=== PATIENT | male | born 1955 | race Caucasian/White ===

== ENCOUNTER 2016-07-01 14:25 | Emergency (ER) | payer OTHER ==
[2016-07-01] MEDS ORDERED: IPRATROPIUM/ALBUTEROL 0.5-2.5 MG/3 ML AMPUL NEB ONE (14:46)
--- NOTE | 2016-07-01 14:48 | ER Document Report ---
ED Cardiac - General Stated Complaint: CHEST PAIN, SHORTNESS OF BREATH Time seen by provider: 14:42 Mode of Arrival: Ambulatory Information source: Patient Notes: 60 yo ex smoker, hypertensive, non hyperlipedemic, non dm, family hx CAD , male sent from dr parrish's office due to cough , chest pain, wheezing at the office. Started getting sick on tuesday with fever, cough, sneezing, nausea, thought he was getting better, but got worse driving here with light sensitivity,anger/ agitation, worse coughing, worse with deep breath. Worse in afternoons with fever. Whole anterior chest is hurting intermittent at first and constant now for 4 days, worse with cough. Hx cirrhosis, PAT. elevated ammonia levels., pneumonia 2003, feels like he has pneumonia again. TRAVEL OUTSIDE OF THE [place] IN LAST 30 DAYS: No - Related Data Allergies/Adverse Reactions: codeine [Codeine] Allergy (Verified 11/23/11 15:43) morphine [Morphine] Allergy (Verified 11/23/11 15:42) Past Medical History - General Information source: Patient - Social History Smoking Status: Former Smoker Frequency of alcohol use: ex-alcoholic Drug Abuse: None Lives with: Spouse/Significant other Family History: None - Past Medical History Cardiac Medical History: Reports: Hx Hypertension Pulmonary Medical History: Reports: Hx Pneumonia GI Medical History: Reports: Hx Cirrhosis Past Surgical History: Reports: Hx Orthopedic Surgery - R arm. Denies: Hx Pacemaker - Immunizations Hx Diphtheria, Pertussis, Tetanus Vaccination: Yes Review of Systems - Review of Systems Constitutional: No symptoms reported EENT: No symptoms reported Cardiovascular: See HPI Respiratory: See HPI Gastrointestinal: No symptoms reported Genitourinary: No symptoms reported Male Genitourinary: No symptoms reported Musculoskeletal: No symptoms reported Skin: No symptoms reported Hematologic/Lymphatic: No symptoms reported Neurological/Psychological: No symptoms reported Physical Exam - Vital signs Vitals: Temp Pulse Resp BP Pulse Ox 97.9 F 69 20 145/77 H 96 07/01/16 14:29 07/01/16 14:29 07/01/16 14:29 07/01/16 14:29 07/01/16 14:29 Interpretation: Normal - General General appearance: Appears well, Alert In distress: None - HEENT Head: Normocephalic, Atraumatic Eyes: Normal Conjunctiva: No: Icteric Pupils: PERRL External canal: Normal Nasal: Normal Mucous membranes: Normal Pharynx: Erythema Neck: No: Lymphadenopathy, Thyromegally - Respiratory Respiratory status: No respiratory distress Chest status: Nontender Breath sounds: Wheezing - Inspiratory next 20 bilateral and course Chest palpation: Normal - Cardiovascular Rhythm: Regular Heart sounds: Normal auscultation Murmur: No - Abdominal Inspection: Normal Distension: No distension Bowel sounds: Normal Tenderness: Nontender. No: Tender Organomegaly: No organomegaly - Back Back: Normal, Nontender. No: CVA tenderness - Extremities General upper extremity: Normal inspection, Nontender, Normal color, Normal ROM , Normal temperature General lower extremity: Normal inspection, Nontender, Normal color, Normal ROM , Normal temperature, Normal weight bearing. No: Etienne's sign - Neurological Neuro grossly intact: Yes Cognition: Normal Orientation: AAOx4 [place]nel Coma Scale Eye Opening: Spontaneous [place] Coma Scale Verbal: Oriented [place] Coma Scale Motor: Obeys Commands Arnel Coma Scale Total: 15 Speech: Normal Motor strength normal: LUE, RUE, LLE, RLE Sensory: Normal - Psychological Associated symptoms: Normal affect, Normal mood - Skin Skin Temperature: Warm Skin Moisture: Dry Skin Color: Normal Skin irregularity: negative: Rash Course - Re-evaluation Re-evalutation: 07/01/16 16:28 Still has some expiratory wheezing bilateral but not as loud as when he first came in 07/01/16 19:09 less coarse wheeze after the nebulizers and prednisone. chest xray is negative. cardiac labs negative. white count normal. ast mildly elevated. pt feels better. 07/01/16 19:[address] Parrish who states that the she ruth a CBC and then developed pain on the office she did not draw pneumonia level I told her that the patient was concerned and so I added that but that he was given a be discharged and she stated she would follow-up with him. I consulted with , based on the fact that his chest wall is tender and has been since he started coughing on Tuesday, wheezing inspiratory next 12 that inhaled bronchodilators has helped , normal sinus rhythm, no tachypnea or tachycardia I doubt that there is pulmonary embolism and the cardiac enzymes are negative do not believe this is ischemia. 07/01/16 21:44 ammonia level negative. pt was discharged. - Vital Signs Vital signs: Temp Pulse Resp BP Pulse Ox 97.9 F 89 15 159/69 H 93 07/01/16 14:29 07/01/16 18:28 07/01/16 19:42 07/01/16 19:42 07/01/16 19:42 - Laboratory Result Diagrams: 07/01/16 15:30 07/01/16 15:30 Laboratory results interpreted by me: 07/01/16 07/01/16 07/01/16 15:30 15:30 19:37 RDW 15.0 H Plt Count 70 L Total Bilirubin 1.5 H Direct Bilirubin 0.5 H AST 73 H Ammonia < 8.7 L Creatine Kinase 173 H - EKG Interpretation by Me EKG shows normal: Sinus rhythm Rate: Normal Rhythm: NSR Discharge - Discharge Clinical Impression: bronchitis, wheezing, chest wall tenderness, History of cirrhosis of liver Disposition: HOME, SELF-CARE Additional Instructions: Follow-up with Dr. Parrish for your ammonia level and lab work that she ruth today Return to the emergency room if coughing or pain or any concerns Use the inhaled bronchodilator every 3 hours. Nebulizer machine may be used 4 times a day with the inhaled bronchodilator Prednisone one week as a taper Drink plenty of fluids Rest Please complete the patient satisfaction survey if you get one, and return it.. If you do not receive a survey, then you can go to the [facility] website, [email or web address] and place your comments about your very good care. Thank you very much. It was a pleasure being your medical provider today. Prescriptions: Albuterol Sulfate [Ventolin 0.083% Neb 2.5 mg/3 mL Ampul] 2.5 mg NEB Q3HP PRN # 25 vial PRN Reason: Albuterol Sulfate [Proair HFA Inhalation Aerosol 8.5 gm MDI] 2 puff IH Q3HP PRN #1 [id number].[id number] PRN Reason: Nebulizer [Nebulizer Machine] 1 each MC ASDIR PRN #1 kit PRN Reason: Prednisone [Deltasone 10 mg Tablet] 10 mg PO ASDIR PRN #21 tablet PRN Reason: Referrals: PIERRE HAMMONDS MD [Primary Care Provider] - Follow up as needed
[2016-07-01] MEDS ORDERED: ASPIRIN 81 MG TABLET, CHEWABLE PO ONE (14:52)
[2016-07-01] MEDS ORDERED: ALBUTEROL SULFATE 0.083% NEB 2.5 MG/3 ML AMPUL NEB ONE (14:52)
[2016-07-01] MEDS ORDERED: PREDNISONE 20 MG TABLET PO ONE (14:52)
[2016-07-01 15:50] LABS: ABSOLUTE EOSINOPHILS # (AUTO) 0.1 10^3/uL (0.0-0.6); ABSOLUTE LYMPHOCYTES (AUTO) 1.4 10^3/uL (0.5-4.7); ABSOLUTE MONOCYTES (AUTO) 0.7 10^3/uL (0.1-1.4); ABSOLUTE NEUT (AUTO) 3.3 10^3/uL (1.7-8.2); BASOPHILS % (AUTO) 0.8 % (0-2); EOSINOPHILS % (AUTO) 2.5 % (0-6); HEMATOCRIT 44.4 % (37.9-51.0); HEMOGLOBIN 15.1 g/dL (13.5-17.0); HGB HCT DIFFERENCE 0.9; MEAN CORPUSCULAR HEMOGLOBIN 29.4 pg (27.0-33.4); MEAN CORPUSCULAR HGB CONC 34.1 g/dL (32.0-36.0); MEAN CORPUSCULAR VOLUME 86 fl (80-97); MONOCYTES % (AUTO) 12.5 % (3-13); RED BLOOD COUNT 5.16 10^6/uL (4.35-5.55); SEGMENTED NEUTROPHILS % (AUTO) 59.2 % (42-78); WHITE BLOOD COUNT 5.6 10^3/uL (4.0-10.5)
[2016-07-01 16:06] LABS: ALANINE AMINOTRANSFERASE 59 U/L (21-72); ALBUMIN 4.6 g/dL (3.5-5.0); ALKALINE PHOSPHATASE 87 U/L (38-126); ANION GAP 17 (5-19); ASPARTATE AMINO TRANSFERASE 73 U/L (17-59); BILIRUBIN,DIRECT 0.5 mg/dL (0.0-0.4); BILIRUBIN,TOTAL 1.5 mg/dL (0.2-1.3); BLOOD UREA NITROGEN 17 mg/dL (7-20); CALCIUM 9.3 mg/dL (8.4-10.2); CARBON DIOXIDE 22 mmol/L (22-30); CHLORIDE 104 mmol/L (98-107); CREATINE KINASE 173 U/L (55-170); CREATININE RESULT 0.71 mg/dL (0.52-1.25); GLUCOSE 100 mg/dL (75-110); POTASSIUM 4.2 mmol/L (3.6-5.0); SODIUM 142.6 mmol/L (137-145); TOTAL PROTEIN 7.9 g/dL (6.3-8.2)
[2016-07-01 16:17] LABS: CREATINE KINASE MB 3.12 ng/mL (<4.55)
[2016-07-01 16:18] LABS: TROPONIN I < 0.012 ng/mL
[2016-07-01] MEDS ORDERED: LEVALBUTEROL HCL NEB 1.25 MG/3 ML AMPUL NEB ONE (16:28)
[2016-07-01] MEDS ORDERED: ALBUTEROL SULFATE HFA (90 MCG/PUFF) 200 PUFF/8.5 GM MDI IH ONE (19:29)
[2016-07-01 19:54] VITALS: BP 159/69
--- NOTE | 2016-07-01 20:51 | EKG REPORT ---
SEVERITY:- BORDERLINE ECG - SINUS RHYTHM BORDERLINE PROLONGED QT INTERVAL : Confirmed by: Carlita Hooper 01-Jul-2016 20:51:13
== END 2016-07-01 19:55 | disposition home or self-care (01) ==
LOC: ER 14:25
DX: J40 Bronchitis, not specified as acute or chronic (principal); R06.2 Wheezing; R07.89 Other chest pain; R07.9 Chest pain, unspecified; R06.02 Shortness of breath; I10 Essential (primary) hypertension; Z87.891 Personal history of nicotine dependence
CPT/HCPCS: 93005; 94640 ×2; 99285; 36415; 87086; 82553; 82140; 82550; 85025; 80053; 84484; 71020; 93010; J7512; J3490 ×2; J7620

== ENCOUNTER → 2016-08-03 | Outpatient (CLI) | payer OTHER | LOC: RAD 07:43 | PROVIDERS: ATTEND Specialist | DX: K74.60 Unspecified cirrhosis of liver (principal) | CPT/HCPCS: 76705; 93976 ==